=== PATIENT | female | born 1965 | race Caucasian/White ===

== ENCOUNTER 2017-10-17 18:31 | Emergency (ER) | payer BC ==
[~2017-10-17] VITALS: Ht 157.5 cm; Wt 104.3 kg
[2018-07-31] MEDS ORDERED: LEVSOD75 (01:55)
[2018-07-31] MEDS ORDERED: LISI20 PO (01:55)
[2018-07-31] MEDS ORDERED: Protonix40 MG PO (03:51)
== END 2017-10-17 20:25 | disposition home or self-care (01) ==
LOC: ER 18:31
DX: L76.22 Postprocedural hemorrhage of skin and subcutaneous tissue following other procedure (principal); K64.4 Residual hemorrhoidal skin tags; I10 Essential (primary) hypertension
CPT/HCPCS: 99283

== ENCOUNTER 2018-09-07 22:02 | Emergency (ER) | payer BC ==
[~2018-09-07] VITALS: Ht 157.5 cm; Wt 99.3 kg
[~2018-09-07 22:02] MED LIST: LEVSOD75 PO; LISI20 PO; Protonix40 MG PO
[2018-09-07 22:49] LABS: BASOPHILS ABSOLUTE AUTO 0.05 K/mm3 (0.00-0.23); BASOPHILS PERCENT AUTO 1 % (0-2); EOSINOPHILS PERCENT AUTO 2 % (0-6); Hematocrit 38.9 % (33.0-51.0); Hemoglobin 13.3 g/dL (11.5-16.0); IMMATURE GRAN ABSOLUTE AUTO 0.04 K/mm3 (0.00-0.10); IMMATURE GRAN PERCENT AUTO 1 % (0-1); LYMPHOCYTES ABSOLUTE AUTO 1.18 K/mm3 (0.84-5.20); LYMPHOCYTES PERCENT AUTO 21 % (21-46); MONOCYTES ABSOLUTE AUTO 0.39 K/mm3 (0.16-1.47); MONOCYTES PERCENT AUTO 7 % (4-13); Mean Corpuscular HGB 30.2 pg (26.0-34.0); Mean Corpuscular HGB Conc 34.2 g/dL (31.5-36.5); Mean Corpuscular Volume 88 fL (80-100); Mean Platelet Volume 9.6 fL (9.1-12.4); NEUTROPHILS ABSOLUTE AUTO 3.98 K/mm3 (1.96-9.15); NEUTROPHILS PERCENT AUTO 69 % (41-73); Platelet Count 263 K/mm3 (150-400); White Blood Cell Count 5.74 K/mm3 (4.00-11.30)
[2018-09-07 23:08] LABS: Alanine Aminotransfer (ALT/SGP 130 U/L (12-78); Albumin, Blood 3.6 g/dL (3.4-5.0); Albumin/Globulin Ratio 0.9 (0.8-1.8); Alk Phos 93 U/L (50-136); Anion Gap 8 mmol/L (6-16); Aspartate Aminotrans (AST/SGOT 89 U/L (12-37); Bilirubin, Total 1.1 mg/dL (0.1-1.0); Blood Urea Nitrogen 12 mg/dL (8-24); Bun/Creatinine Ratio 17.9 (12.0-20.0); CO2, Blood 30 mmol/L (21-32); Calcium, Blood 8.7 mg/dL (8.5-10.1); Chloride, Blood 98 mmol/L (98-108); Creatinine, Blood 0.67 mg/dL (0.40-1.00); Globulin, Blood 4.2 g/dL (2.2-4.0); Glomerular Filtration Rate >60 (60-); Glucose, Blood 142 mg/dL (70-99); Potassium, Blood 2.8 mmol/L (3.5-5.5); Sodium, Blood 136 mmol/L (136-145); Total Protein, Blood 7.8 g/dL (6.4-8.2)
[2018-09-08] MEDS ORDERED: Percocet 5-3251 EACH PO (00:36)
[2018-09-08] MEDS ORDERED: K-Dur20 MEQ PO (00:41)
== END 2018-09-08 01:20 | disposition home or self-care (01) ==
LOC: ER 22:02
PROVIDERS: Emergency Medicine
DX: K29.70 Gastritis, unspecified, without bleeding (principal); K80.50 Calculus of bile duct without cholangitis or cholecystitis without obstruction; E87.6 Hypokalemia; Z79.899 Other long term (current) drug therapy; I10 Essential (primary) hypertension
CPT/HCPCS: 36415; 80053; 83690; 85025; 96374; 96375; 99283-25; J1170; J2405

== ENCOUNTER 2018-09-17 07:53 | Day surgery (SDC) | payer BC ==
[~2018-09-17] VITALS: Ht 160 cm; Wt 99.3 kg
[~2018-09-17 07:53] MED LIST changes: +K-Dur20 MEQ PO; +Percocet 5-3251 EACH PO
--- NOTE | 2018-09-17 08:20 | NUR ---
History, Chart, Medications and Allergies reviewed before start of procedure. Patient confirms NPO status and agrees with scheduled surgery. Lungs clear T/O to Auscultation. Patient reports completing Chlorhexadine shower X2 prior to admission to hospital. Patient States Post-Procedure ride home has been arranged. Pre-Op teaching done. Pt verbalizes understanding.
--- NOTE | 2018-09-17 08:23 | NUR ---
0823-LR IV TKO INFUSING.
--- NOTE | 2018-09-17 08:35 | NUR ---
CLIP PREP COMPLETED BY JUNE MCCLENDON RN.
--- NOTE | 2018-09-17 08:38 | NUR ---
HEEL CUTTER REPORT COMPLETED AT BEDSIDE. TRACKER CARD EXPLAINED AND OPPORTUNITIES FOR QUESTIONS PROVIDED.
--- NOTE | 2018-09-17 08:41 | NUR ---
NO PREMEDS PER DR CHAVEZ.
--- NOTE | 2018-09-17 08:43 | NUR ---
ALEX MEJIA, RN HERE AT BEDSIDE TO TALK WITH PATIENT, WILL WAIT TO TAKE THE PATIENT BACK TO OR. PATIENT UP FOR UNMEASURED VOID.
--- NOTE | 2018-09-17 10:23 | NUR ---
ENCOURAGED TO TAKE DEEP BREATHS AND SLOWLY EXHALE TO RAISE SAT TO GREATER THAN 91 PATIENT ABLE TO COMPLY GIVEN ICE CHIPS
--- NOTE | 2018-09-17 10:55 | NUR ---
at bedside paitent eating crackers at thsi time given pain rx
--- NOTE | 2018-09-17 12:40 | NUR ---
DISCHARGED WITH ALL BELONGINGS AND DISCHARGE INSTRUCTIONS. VSS PATIENT STATES PAIN IS TOLERABLE.
== END 2018-09-17 22:43 | disposition home or self-care (01) ==
LOC: ORSCMMR 07:53 → ORD 09:30 → ORSCMMR 09:30
PROVIDERS: Surgery
PROC: 0FT44ZZ Resection of Gallbladder, Percutaneous Endoscopic Approach (ICD-10-PCS; principal; 2018-09-17 09:30)
PROC: BF031ZZ Plain Radiography of Gallbladder and Bile Ducts using Low Osmolar Contrast (ICD-10-PCS; principal; 2018-09-17 09:30)
DX: K80.10 Calculus of gallbladder with chronic cholecystitis without obstruction (principal); I10 Essential (primary) hypertension; E03.9 Hypothyroidism, unspecified; Z79.899 Other long term (current) drug therapy; E66.01 Morbid (severe) obesity due to excess calories; Z68.38 Body mass index [BMI] 38.0-38.9, adult
CPT/HCPCS: 74300; 88304; C1894; J0694; J1100; J1885; J2370; J2405; J2710; J3010; J7120

== ENCOUNTER → 2024-09-13 | Outpatient (CLI) | payer OTHER ==
[2024-09-16 12:54] LABS: HPV HIGH RISK BY TMA Not Detected; HPV SOURCE Cervical
== END ==
LOC: LAB 16:53 → LAB SHORT 16:53
PROVIDERS: Physician Assistant
DX: Z01.419 Encounter for gynecological examination (general) (routine) without abnormal findings (principal)
CPT/HCPCS: 87624; G0123